=== PATIENT | male | born 2000 | race Two or more races ===

== ENCOUNTER 2022-10-18 11:31 | Inpatient (IN) | payer MEDICAID ==
[~2022-10-18] VITALS: Ht 177.8 cm; Wt 92.1 kg
[2022-10-18] MEDS ORDERED: HALOPERIDOL 5 MG TABLET PO PRN (12:15)
[2022-10-18 13:11] VITALS: RESP 19; TEMP 98.1
[2022-10-18 13:16] LABS: GLUCOMETER DEV NAME(LOC) POC.BV; POC SARS-COV2 AG, FIA NEGATIVE (NEGATIVE)
[2022-10-18 14:13] VITALS: BP 143/85; PULSE 105; RESP 18; TEMP 97.9; O2SAT 96
[2022-10-18] MEDS: LORazepam 2 MG TABLET PO PRN (18:10)
[2022-10-18] MEDS ORDERED: MAG HYDROX/AL HYDROX/SIMETH ES 30 ML SUSPENSION UDCUP PO PRN (19:30)
[2022-10-18] MEDS ORDERED: OMEPRAZOLE 20 MG CAPSULE PO PRN (19:30)
[2022-10-18] MEDS ORDERED: MAGNESIUM HYDROXIDE SUSPENSION 30 ML UDCUP PO PRN (19:30)
[2022-10-18] MEDS ORDERED: ONDANSETRON HCL 4 MG TABLET PO PRN (19:30)
[2022-10-18] MEDS ORDERED: ACETAMINOPHEN 325 MG TABLET PO PRN (19:30)
[2022-10-18] MEDS ORDERED: ALBUTEROL SULFATE HFA 90 MCG/PUFF 8 GM INHALER IH PRN (19:30)
[2022-10-18] MEDS ORDERED: DOCUSATE SODIUM 100 MG CAPSULE PO PRN (19:30)
[2022-10-18] MEDS ORDERED: PETROLATUM,WHITE 28 GM JELLY TP PRN (19:30)
[2022-10-18] MEDS ORDERED: BENZOCAINE/MENTHOL LOZENGE PO PRN (19:30)
[2022-10-18] MEDS ORDERED: LOPERAMIDE HCL 2 MG CAPSULE PO PRN (19:30)
[2022-10-18] MEDS ORDERED: IBUPROFEN 600 MG TABLET PO PRN (19:30)
[2022-10-18] MEDS ORDERED: BACITRACIN 28 GM OINTMENT TP PRN (19:30)
[2022-10-18] MEDS ORDERED: CloNIDine HCL 0.1 MG TABLET PO PRN (19:30)
[2022-10-18] MEDS: ZOLPIDEM TARTRATE 10 MG TABLET PO PRN (21:47)
[2022-10-19 00:43] VITALS: RESP 18
[2022-10-19] MEDS: LORazepam 2 MG TABLET PO PRN ×2 (06:53→13:42)
[2022-10-19 08:50] LABS: BASOPHILS % (AUTO) 0.5 % (0.0-2.0); EOSINOPHILS % (AUTO) 1.8 % (1.0-6.0); HEMATOCRIT 42.9 % (41-53); HEMOGLOBIN 14.6 g/dL (13.5-17.5); LYMPHOCYTES # (AUTO) 2.1 K/uL (1.0-4.8); LYMPHOCYTES % (AUTO) 22.9 % (22.0-44.0); MEAN CORPUSCULAR HEMOGLOBIN 29.1 pg (26.0-34.0); MEAN CORPUSCULAR HGB CONC 34.1 G/dL (31.0-37.0); MEAN CORPUSCULAR VOLUME 85 fL (80-100); MONOCYTES # (AUTO) 0.9 K/uL (0.1-1.0); MONOCYTES % (AUTO) 9.6 % (2.0-9.0); NEUTROPHILS # (AUTO) 5.9 K/uL (1.8-7.7); NEUTROPHILS % (AUTO) 65.2 % (40.0-70.0); PLATELET COUNT (AUTO) 199 K/uL (150-450); RED BLOOD CELL COUNT(AUTO) 5.02 MIL/uL (4.50-5.90); RED CELL DISTRIBUTION WIDTH 14.2 % (11.5-14.5); WHITE BLOOD COUNT (AUTO) 9.1 K/uL (4.5-11.0)
[2022-10-19 09:03] LABS: HEMOGLOBIN A1C 5.2 % (3.8-5.6)
[2022-10-19 09:06] LABS: ALCOHOL, BLOOD (SERUM) < 3 mg/dL (0-10)
[2022-10-19 09:18] LABS: ALANINE AMINOTRANSFERASE 16 U/L (12-78); ALBUMIN 3.6 g/dL (3.4-5.0); ALKALINE PHOSPHATASE 61 U/L (46-116); ANION GAP 12 mmol/L (8-16); ASPARTATE AMINOTRANSFERASE 17 U/L (15-37); BILIRUBIN,TOTAL 0.7 mg/dL (0.1-1.0); CARBON DIOXIDE 30 mmol/L (22-29); CHLORIDE 98 mmol/L (98-107); CHOL/HDL RATIO 3.7 (4.2-7.3); CHOLESTEROL 143 mg/dL (131-200); CREATININE 0.62 mg/dL (0.60-1.30); FREE T4 (FREE THYROXINE) 1.26 ng/dL (0.76-1.46); GLOMERULAR FILTR. RATE CALC > 60 mL/min (>60); GLUCOSE,RANDOM 87 mg/dL (70-110); HDL CHOLESTEROL 39 mg/dL (40-60); LDL CHOL (CALC.) 79 mg/dL (0-130); POTASSIUM 3.7 mmol/L (3.5-5.1); SODIUM SERUM 140 mmol/L (136-145); T4 (THYROXINE) 10.7 mcg/dL (4.7-13.3); THYROID STIMULATING HORMONE 1.18 uIU/mL (0.36-3.74); TRIGLYCERIDES 123 mg/dL (15-150); UREA NITROGEN, BLOOD 9 mg/dL (7-18)
[2022-10-19 15:42] VITALS: BP 125/81; PULSE 94; RESP 18; TEMP 97.8; O2SAT 96
[2022-10-19 20:30] VITALS: BP 121/79; PULSE 98; RESP 18; TEMP 98.1; O2SAT 98
[2022-10-19] MEDS: ZOLPIDEM TARTRATE 10 MG TABLET PO PRN (21:07)
[2022-10-20 08:19] VITALS: BP 123/77; PULSE 92; RESP 18; TEMP 97.6; O2SAT 98
[2022-10-20] MEDS: LORazepam 2 MG TABLET PO PRN ×2 (09:17→17:13)
[2022-10-20 20:39] VITALS: BP 139/89; PULSE 98; RESP 18; TEMP 97.5; O2SAT 98
[2022-10-20] MEDS: ZOLPIDEM TARTRATE 10 MG TABLET PO PRN (20:47)
[2022-10-21] MEDS: LORazepam 2 MG TABLET PO PRN (08:50)
[2022-10-21 09:29] VITALS: BP 140/86; PULSE 85; RESP 20; TEMP 98; O2SAT 96
[2022-10-21] MEDS: DIVALPROEX SODIUM 500 MG DR TABLET PO SCH ×2 (11:18→17:29)
[2022-10-21] MEDS: DULoxetine HCL 60 MG CAPSULE PO SCH (11:18)
[2022-10-21 20:29] VITALS: BP 140/99; PULSE 100; RESP 18; TEMP 98.5; O2SAT 96
[2022-10-21] MEDS: ZOLPIDEM TARTRATE 10 MG TABLET PO PRN (21:12)
[2022-10-22 08:21] VITALS: BP 132/70; PULSE 94; RESP 18; TEMP 97.8; O2SAT 96
[2022-10-22 08:29] LABS: APPEARANCE,URINE CLEAR (CLEAR); BILIRUBIN,URINE NEGATIVE (NEGATIVE); COLOR,URINE YELLOW (YELLOW); GLUCOSE, URINE (UA) NEGATIVE (NEGATIVE); KETONES,URINE NEGATIVE (NEGATIVE); LEUKOCYTE ESTERASE ,URINE NEGATIVE (NEGATIVE); NITRATE,URINE NEGATIVE (NEGATIVE); OCCULT BLOOD,URINE NEGATIVE (NEGATIVE); PROTEIN,URINE NEGATIVE (NEGATIVE); SPECIFIC GRAVITIY, URINE 1.018 (1.003-1.030); UROBILINOGEN,URINE <=1.0 mg/dL (<=1.0)
[2022-10-22] MEDS: DULoxetine HCL 60 MG CAPSULE PO SCH (08:45)
[2022-10-22] MEDS: DIVALPROEX SODIUM 500 MG DR TABLET PO SCH ×2 (08:45→16:55)
[2022-10-22 08:52] LABS: ALCOHOL, URINE DRUG SCREEN NEGATIVE (NEGATIVE); AMPHET/METH SCREEN,URINE NEGATIVE (NEGATIVE); BARBITURATE SCREEN, URINE NEGATIVE (NEGATIVE); BENZODIAZEPINES SCREEN,URINE NEGATIVE (NEGATIVE); CANNABINOID SCREEN,URINE POSITIVE (NEGATIVE); COCAINE SCREEN,URINE NEGATIVE (NEGATIVE); METHADONE SCREEN, URINE NEGATIVE (NEGATIVE); OPIATE SCREEN,URINE NEGATIVE (NEGATIVE); PHENCYCLIDINE SCREEN,URINE NEGATIVE (NEGATIVE)
[2022-10-22] MEDS ORDERED: DULO-113 PO (17:01)
[2022-10-22] MEDS ORDERED: DIVA-112 PO (17:04)
== END 2022-10-22 17:50 | disposition home or self-care (01) | DRG 750 ==
LOC: B2S 12:36
PROVIDERS: ADMIT Psychiatry & Neurology Psychiatry; ATTEND Psychiatry & Neurology Psychiatry
DX: F25.9 Schizoaffective disorder, unspecified (principal); G60.0 Hereditary motor and sensory neuropathy; Z20.822 Contact with and (suspected) exposure to COVID-19; F41.9 Anxiety disorder, unspecified; F12.90 Cannabis use, unspecified, uncomplicated; G47.00 Insomnia, unspecified; K59.00 Constipation, unspecified; Z72.0 Tobacco use
CPT/HCPCS: 80053; 80061; 80307; 81003; 83036; 84436; 84439; 84443; 85025; 86592; G0480; Q0162